=== PATIENT | male | born 1995 ===

== ENCOUNTER 2019-01-21 07:45 | Outpatient (CLI) | payer OTHER ==
[~2019-01-21] VITALS: Ht 172.7 cm; Wt 59.0 kg
== END 2019-01-21 08:00 | disposition home or self-care (01) ==
LOC: OFIC 805 07:45
DX: T17.298A Other foreign object in pharynx causing other injury, initial encounter (principal); M85.88 Other specified disorders of bone density and structure, other site; J31.0 Chronic rhinitis